=== PATIENT | male | born 1955 | race Caucasian/White ===

== ENCOUNTER → 2017-07-24 | Outpatient (CLI) | payer OTHER ==
[~2017-07-24] MED LIST: MOBIC15 MG PO; PAIN RELIEF TA1 EACH PO; TRAMADOL 50 MG50 MG PO
--- NOTE | 2017-07-26 08:15 | PAINCON ---
[address] [address] PAIN MANAGEMENT CONSULTATION Name: PARKER ORO Room: [facility]#: [id number] Admission: 07/24/17 Attend Phys: Nohemy Freeman Discharge: Date of : 51 Report #: [id number] THIS REPORT FOR: //name// CC: Darrel Ortiz HISTORY OF PRESENT ILLNESS: The patient is a 61-year-old gentleman, prior seen in the pain clinic, given a lumbar epidural injection for lumbar radiculopathy for lumbar radicular symptoms, which gave 100% relief for 2 weeks, pain has gradually begun to recur, still of 30%-40% overall improved. Pain in low back radiating down both legs. PHYSICAL EXAMINATION: VITAL SIGNS: Physical exam is relatively unchanged, 5 feet 9 inches, 203 pounds gentleman, BMI is 30 kilograms per meter squared. Blood pressure 159/82, pulse and respirations 16. MUSCULOSKELETAL: Rises from chair using armrest. Lumbar flexion is modestly limited. Lower extremity strength is improving. Straight leg raise is positive, though less so than the last visit. RECOMMENDATIONS: He did discontinue Meloxicam. I encouraged him to continue this for another 30 days. We will repeat epidural injection under fluoroscopy today. Follow up in 30 days to evaluate and hopefully, he can cancel at that time. ASSESSMENT: Symptomatic lumbar radiculopathy. PROCEDURE: Lumbar epidural injection under fluoroscopy. PROCEDURE NOTE: After both written and informed consent to include risk of spinal cord damage, increased pain, weakness and dural puncture, the patient was taken to the fluoroscopy suite, placed in the prone position. After sterile prep and drape, a skin wheal with lidocaine was raised. A 22-gauge epidural Tuohy needle was inserted in the midline at L5-S1 with good loss to resistance. Negative aspiration for cerebrospinal fluid or blood was noted. Then 1 mL of Omnipaque under biplanar fluoroscopy showed good spread within the epidural space. This was followed with 80 mg of triamcinolone plus 1 mL of 1.5% preservative-free Xylocaine, 0.5 mL Xylocaine was then injected to flush the needle; it was removed. The patient was monitored for an appropriate period of time and discharged in good and stable condition. <ELECTRONICALLY SIGNED> By: Geremias Ortiz DO 07/26/17 0815 [id number] Ortiz DO /nt
== END | disposition home or self-care (01) ==
LOC: M.PC 02:05
DX: M54.16 Radiculopathy, lumbar region (principal); Z98.890 Other specified postprocedural states

== ENCOUNTER → 2017-08-21 | Outpatient (CLI) | payer OTHER ==
--- NOTE | 2017-08-26 07:21 | PAINCON ---
[address] [address] PAIN MANAGEMENT CONSULTATION Name: ORO,PARKER Shaw [id number] Admission: 08/21/17 Attend Phys: Nohemy Freeman Discharge: Date of : 51 Report #: [id number] THIS REPORT FOR: //name// CC: Darrel Ortiz HISTORY OF PRESENT ILLNESS: The patient is a 62-year-old gentleman, prior seen in the pain clinic on 07/24/2017, given epidural injection at that time (#2). Initial injection was on 06/26/2017. Returns to pain clinic today noting incremental improvement overall, but still has ongoing radicular pain. Rates his pain 1 on VAS, but notes pain in the low back and bilateral legs exacerbated with walking. He is taking meloxicam daily. Tramadol, he has been able to wean off of it. He notes overall 89% improvement of pain, but with symptoms starting to recur he would like to repeat the injection today. PHYSICAL EXAMINATION: Shows 5 feet 9 inches, 203 pounds gentleman, BMI is 29.8 kilograms per meter squared. Blood pressure 155/76, pulse 68, respirations 16. Rises from chair using armrest. Lumbar flexion is modestly limited. Gait is tandem though still has a moderately positive straight leg raise on the left. ASSESSMENT: Symptomatic cervical radiculopathy, incremental improvement following 2 epidural injections. RECOMMENDATIONS: Repeat epidural injection under fluoroscopy today. Continue meloxicam through completion (has approximately 3 weeks left). Follow up simply as needed. PROCEDURE: Lumbar epidural injection under fluoroscopy. PROCEDURE NOTE: After both written and informed consent to include risk of spinal cord damage, increased pain, weakness and dural puncture, the patient was taken to the fluoroscopy suite, placed in the prone position. After sterile prep and drape, a skin wheal with lidocaine was raised. A 22-gauge epidural Tuohy needle was inserted in the midline at L5-S1 with good loss to resistance. Negative aspiration for cerebrospinal fluid or blood was noted. Then 1 mL of Omnipaque under biplanar fluoroscopy showed good spread within the epidural space. This was followed with 80 mg of triamcinolone plus 1 mL of 1.5% preservative-free Xylocaine, 0.5 mL Xylocaine was then injected to flush the needle; it was removed. The patient was monitored for an appropriate period of time and discharged in good and stable condition. <ELECTRONICALLY SIGNED> By: Geremias Ortiz DO 08/26/17 0721 [id number] Ortiz DO /fransico
== END | disposition home or self-care (01) ==
LOC: M.PC 01:36
DX: M54.16 Radiculopathy, lumbar region (principal); Z68.29 Body mass index [BMI] 29.0-29.9, adult; Z79.899 Other long term (current) drug therapy